=== PATIENT | male | born 1995 | race Caucasian/White ===

== ENCOUNTER 2018-06-13 19:36 | Emergency (ER) | payer BC ==
[~2018-06-13] VITALS: Ht 177.8 cm; Wt 81.8 kg
[2018-06-13 19:40] VITALS: BP 140/91
[2018-06-13 20:55] VITALS: TEMP 97.8
[2018-06-13 21:58] VITALS: PULSE 74
== END 2018-06-13 22:00 | disposition home or self-care (01) ==
LOC: COL.ER 19:36
DX: S61.216A Laceration without foreign body of right little finger without damage to nail, initial encounter (principal); W26.8XXA Contact with other sharp object(s), not elsewhere classified, initial encounter; Y92.009 Unspecified place in unspecified non-institutional (private) residence as the place of occurrence of the external cause; Y93.G1 Activity, food preparation and clean up